=== PATIENT | female | born 1990 | race Caucasian/White ===

== ENCOUNTER 2020-02-18 07:24 | Emergency (ER) | payer SELFPAY ==
[~2020-02-18] VITALS: Ht 165.1 cm; Wt 88.6 kg
[2020-02-18] MEDS ORDERED: IV NORMAL SALINE 1,000ML 1,000 ML IV SCH (07:37)
[2020-02-18] MEDS ORDERED: ASPIRIN CHEWABLE 81 MG TABLET. PO ONE (07:45)
[2020-02-18 08:13] LABS: BASO # 0.1 x10^3/uL (0.0-0.2); BASO % 1 % (0-3); EOS # 0.2 x10^3/uL (0.0-0.7); EOS % 2 % (0-3); HEMATOCRIT 40.4 % (36.0-47.0); HEMOGLOBIN 13.4 g/dL (12.0-15.5); LYMPH # 3.8 x10^3/uL (1.0-4.8); LYMPH % 32 % (24-48); MEAN CORPUSCULAR HEMOGLOBIN 31 pg (25-35); MEAN CORPUSCULAR HGB CONC 33 g/dL (31-37); MEAN CORPUSCULAR VOLUME 93 fL (79-100); MONO # 0.6 x10^3/uL (0.0-1.1); MONO % 5 % (0-9); NEUT # 7.3 x10^3uL (1.8-7.7); NEUT % 61 % (31-73); PLATELET COUNT 418 x10^3/uL (140-400); RED BLOOD COUNT 4.36 x10^6/uL (3.50-5.40); RED CELL DISTRIBUTION WIDTH 12.4 % (11.5-14.5)
[2020-02-18] MEDS ORDERED: ONDANSETRON PF 4 MG/2 ML VIAL. IVP ONE (08:15)
--- NOTE | 2020-02-18 08:18 | RAD ---
EXAM: Chest, single view. HISTORY: Chest pain. COMPARISON: None. FINDINGS: A frontal view of the chest is obtained. There is no infiltrate, pleural effusion or pneumothorax. The heart is normal in size. IMPRESSION: No acute pulmonary finding. Electronically signed by: Medina Kwon MD (02/18/2020 8:15 AM) [id number]
[2020-02-18 08:23] LABS: CALCIUM 9.4 mg/dL (8.5-10.1); CREATININE 0.7 mg/dL (0.6-1.0); GFR 99.6; POTASSIUM 4.3 mmol/L (3.5-5.1)
--- NOTE | 2020-02-18 08:25 | PHYS DOC ---
Past History Past Medical History: No Pertinent History Past Surgical History: No Surgical History Additional Smoking Information: 5-7 cigs/day Alcohol Use: None General Adult EDM: Chief Complaint: BACK PAIN OR INJURY HPI: HPI: 29-year-old female presents with back pain. The patient was at work when she started to get some mild pain in her back just below her shoulder blades. Over about a 20-minute. It rapidly increased and radiated around both sides to her chest. She describes it as a pressure sensation. It has brought her to tears. On arrival, her pain was a 7 out of 10. She vomited once in the emergency room and it decreased to a 4. She has felt clammy but denies shortness of breath. Patient has had no symptoms prior to this. She does occasionally have backaches because her job is physical. No abdominal surgery history. No significant back history. She denies fever chills. She denies alcohol or illicit drug use. She is a cigarette smoker. Review of Systems: Review of Systems: Constitutional: Denies fever or chills Eyes: Denies change in visual acuity HENT: Denies nasal congestion or sore throat Respiratory: Denies cough or shortness of breath Cardiovascular: Chest pain GI: Denies abdominal pain, nausea, vomiting, bloody stools or diarrhea : Denies dysuria Musculoskeletal: Bilateral mid back pain Integument: Denies rash Neurologic: Denies headache, focal weakness or sensory changes Endocrine: Denies polyuria or polydipsia Lymphatic: Denies swollen glands Psychiatric: Denies depression or anxiety Heart Score: Risk Factors: Risk Factors: DM, Current or recent (<one month) smoker, HTN, HLP, family history of CAD, obesity. Risk Scores: Score 0 - 3: 2.5% MACE over next 6 weeks - Discharge Home Score 4 - 6: 20.3% MACE over next 6 weeks - Admit for Clinical Observation Score 7 - 10: 72.7% MACE over next 6 weeks - Early Invasive Strategies Current Medications: Current Meds: Current Medications Medications (Trade) Dose Ordered Sig/Jose Start Time Stop Time Status Last Admin Dose Admin Aspirin (Aspirin Chewable) 324 mg 1X ONCE 02/18/20 07:45 02/18/20 07:55 DC Ondansetron HCl (Zofran) 4 mg 1X ONCE 02/18/20 08:15 02/18/20 08:16 UNV Sodium Chloride 1,000 ml @ 1,000 mls/hr Q1H 02/18/20 07:37 02/18/20 08:36 Allergies: Allergies: Allergies Coded Allergies Type Severity Reaction Last Updated Verified No Known Drug Allergies 02/18/20 No Physical Exam: PE: Constitutional: Well developed, well nourished, mild acute distress, non-toxic appearance. [] HENT: Normocephalic, atraumatic, bilateral external ears normal, oropharynx moist, no oral exudates, nose normal. [] Eyes: PERRLA, EOMI, conjunctiva normal, no discharge. [] Neck: Normal range of motion, no tenderness, supple, no stridor. [] Cardiovascular: Heart rate regular rhythm, no murmur [] Lungs & Thorax: Bilateral breath sounds clear to auscultation [] Abdomen: Bowel sounds normal, soft, no tenderness, no masses, no pulsatile masses. [] Skin: Warm, dry, no erythema, no rash. [] Back: No tenderness, no CVA tenderness. [] Extremities: No tenderness, no cyanosis, no clubbing, ROM intact, no edema. [] Neurologic: Alert and oriented X 3, normal motor function, normal sensory function, no focal deficits noted. [] Psychologic: Affect normal, judgement normal, mood normal. [] Current Patient Data: Labs: Laboratory Tests Test 02/18/20 07:55 White Blood Count 12.0 x10^3/uL (4.0-11.0) H Red Blood Count 4.36 x10^6/uL (3.50-5.40) Hemoglobin 13.4 g/dL (12.0-15.5) Hematocrit 40.4 % (36.0-47.0) Mean Corpuscular Volume 93 fL (79-100) Mean Corpuscular Hemoglobin 31 pg (25-35) Mean Corpuscular Hemoglobin Concent 33 g/dL (31-37) Red Cell Distribution Width 12.4 % (11.5-14.5) Platelet Count 418 x10^3/uL (140-400) H Neutrophils (%) (Auto) 61 % (31-73) Lymphocytes (%) (Auto) 32 % (24-48) Monocytes (%) (Auto) 5 % (0-9) Eosinophils (%) (Auto) 2 % (0-3) Basophils (%) (Auto) 1 % (0-3) Neutrophils # (Auto) 7.3 x10^3uL (1.8-7.7) Lymphocytes # (Auto) 3.8 x10^3/uL (1.0-4.8) Monocytes # (Auto) 0.6 x10^3/uL (0.0-1.1) Eosinophils # (Auto) 0.2 x10^3/uL (0.0-0.7) Basophils # (Auto) 0.1 x10^3/uL (0.0-0.2) Vital Signs: Vital Signs Date Time Temp Pulse Resp B/P (MAP) Pulse Ox O2 Delivery O2 Flow Rate FiO2 02/18/20 07:40 98.0 90 24 129/62 (84) 99 Room Air EKG: EKG: Sinus rhythm, rate 84, rightward axis, no ST elevations or depressions. [] Radiology/Procedures: Radiology/Procedures: [] Impressions: EXAM: Chest, single view. HISTORY: Chest pain. COMPARISON: None. FINDINGS: A frontal view of the chest is obtained. There is no infiltrate, pleural effusion or pneumothorax. The heart is normal in size. IMPRESSION: No acute pulmonary finding. Electronically signed by: Medina Kwon MD (02/18/2020 8:15 AM) [id number] DICTATED AND SIGNED BY: MEDINA KWON MD DATE: 02/18/20 0815 CC: MARIA D ALMENDAREZ DO; PCP,NO ~ Course & Med Decision Making: Course & Med Decision Making Pertinent Labs and Imaging studies reviewed. (See chart for details) The patient's labs are unremarkable. Her EKG is unremarkable. Her troponin is negative. Her chest x-ray is negative for acute findings. The patient was given aspirin, 1 L normal saline, and 4 mg of Zofran. I ordered her 30 mg Toradol for pain. The patient is feeling much better. She started feeling quite a bit better after vomiting. I do not know if she just had pressure buildup in her GI system causing her acute pain or a viral illness. It does not appear to be anything life-threatening at this time. She is stable for discharge. [] Dragon Disclaimer: Dragon Disclaimer: This electronic medical record was generated, in whole or in part, using a voice recognition dictation system. Departure Departure: Impression: Primary Impression: Thoracic back pain Qualified Codes: M54.6 - Pain in thoracic spine Disposition: 01 HOME, SELF-CARE Condition: IMPROVED Referrals: PCPJAUN (PCP) Patient Instructions: Back Pain, Adult, [id number] MARIA D ALMENDAREZ DO February 18, 2020 08:25
[2020-02-18 08:29] LABS: ALBUMIN/GLOBULIN RATIO 1.1 (1.0-1.7); TOTAL BILIRUBIN 0.2 mg/dL (0.2-1.0); TOTAL PROTEIN 7.5 g/dL (6.4-8.2)
[2020-02-18 08:45] LABS: BACTERIA,URINE 0 /HPF (0-FEW); BILIRUBIN,URINE NEG (NEG); CLARITY,URINE HAZY; COLOR,URINE YELLOW; GLUCOSE,URINE NEG (NEG); NITRITE,URINE NEG (NEG); SQUAMOUS EPITHELIAL CELL,UR MOD /LPF; UROBILINOGEN,URINE 0.2 mg/dL (0.2 mg/dL)
[2020-02-18 09:06] VITALS: BP 127/80
[2020-02-18] MEDS ORDERED: KETOROLAC 30 MG/ML VIAL. IVP ONE (09:30)
--- NOTE | 2020-02-20 16:59 | EKG ---
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
== END 2020-02-18 09:55 | disposition home or self-care (01) ==
LOC: ER 07:24
DX: M54.6 Pain in thoracic spine (principal); R11.2 Nausea with vomiting, unspecified; F17.210 Nicotine dependence, cigarettes, uncomplicated
CPT/HCPCS: 36415; 71045; 80053; 81001; 84484; 85025; 87086; 93005; 96374; 99285; J2405; J7030